=== PATIENT | female | born 1990 | race Caucasian/White ===

== ENCOUNTER 2017-01-03 00:59 | Emergency (ER) | payer OTHER | END 2017-01-03 04:41 | disposition home or self-care (01) | LOC: FER 00:59 | DX: L56.8 Other specified acute skin changes due to ultraviolet radiation (principal) | CPT/HCPCS: 99283 ==

== ENCOUNTER 2021-01-13 12:37 | Emergency (ER) | payer OTHER ==
[~2021-01-13 12:37] MED LIST: ACETAMINOPHEN325 MG PO; AUGMENTIN 500-1 EACH PO; BACTRIM DS TAB1 EACH PO; CARVEDILOL6.25 MG PO; DESYREL50 MG PO; FOLIC ACID1 M1 PO; LINZESS72 MCG PO; MACROBID100 MG PO; MULTIVITAMIN PO; NAPROXEN500 MG PO; NORCO 5-325 TA1 EACH PO; PERCOCET 7.5/321 TAB PO; PHENERGAN25 M1 PO; PREDNISONE10 M1 PO; PROSCAR5 MG PO; PROTONIX 40MG T40 MG PO; SODIUM BICARBO650 M1 PO; SYNTHROID125 MCG PO; TAMSULOSIN HCL0.4 MG PO; ZOLOFT100 MG PO; [UNRECOGNIZED DRUG - OTHER] PO
[2021-01-13 13:33] LABS: BASOPHIL 0.5 % (0-2); EOSINOPHIL 0 % (0-5); HCT 33.7 % (37.0-47.0); HGB 10.9 g/dl (12.5-16.0); LYMPHOCYTE 28.2 % (15-48); MCH 27.6 pg (25.0-31.0); MCHC 32.3 g/dL (32.0-36.0); MCV 85.3 fL (78.0-100.0); MPV 9.5 fL (6.0-9.5); NRBC 0; PLT 271 K/uL (150-400); RBC 3.95 M/uL (4.20-5.40); RDW 13.9 % (11.5-14.0); WBC 7.8 K/uL (4.0-10.5)
[2021-01-13 13:33] LABS: BILIRUBIN NEGATIVE (NEGATIVE); BLOOD NEGATIVE Ery/uL (NEGATIVE); CLARITY CLEAR (CLEAR); COLOR YELLOW (YELLOW); GLUCOSE (U) NORMAL (NORMAL); LEUKOCYTES NEGATIVE Leu/uL (NEGATIVE); NITRITE NEGATIVE (NEGATIVE); PROTEIN TRACE (LOW) mg/dL (NEGATIVE); SPECIFIC GRAVITY >=1.030 (1.001-1.030); UROBILINOGEN 0.2 mg/dL (0.2-1.0); pH 5.5 (5.0-9.0)
[2021-01-13 13:37] LABS: BACTERIA TRACE; URINARY RBC RARE
[2021-01-13 13:50] LABS: ALBUMIN 3.4 g/dL (3.4-5.0); BILIRUBIN - TOTAL 0.2 mg/dL (0.2-1.0); BUN/CREAT RATIO (CALC) 9.1 RATIO; CREATININE 0.99 mg/dL (0.51-0.95); GLOBULIN (CALCULATION) 3.4 g/dL; POTASSIUM 3.6 mmol/L (3.5-5.1); TOTAL PROTEIN 6.8 g/dL (6.4-8.2)
== END 2021-01-13 16:18 | disposition home or self-care (01) ==
LOC: FER 12:37
PROVIDERS: Nurse Practitioner Family
DX: O26.891 Other specified pregnancy related conditions, first trimester (principal); R10.84 Generalized abdominal pain; Z3A.00 Weeks of gestation of pregnancy not specified
CPT/HCPCS: 36415; 80053; 81001; 84702; 85025; 99284

== ENCOUNTER 2021-03-05 10:06 | Emergency (ER) | payer OTHER ==
[2021-03-05 10:53] LABS: BASOPHIL 0.4 % (0-2); EOSINOPHIL 0 % (0-5); HCT 33.9 % (37.0-47.0); HGB 11.3 g/dl (12.5-16.0); LYMPHOCYTE 20.7 % (15-48); MCH 27.8 pg (25.0-31.0); MCHC 33.3 g/dL (32.0-36.0); MCV 83.5 fL (78.0-100.0); MONOCYTE 4.2 % (0-12); MPV 10.3 fL (6.0-9.5); NEUTROPHIL 74.4 % (41-80); NRBC 0; PLT 253 K/uL (150-400); RBC 4.06 M/uL (4.20-5.40); RDW 14.5 % (11.5-14.0); WBC 7.6 K/uL (4.0-10.5)
[2021-03-05 10:58] LABS: BILIRUBIN 2+ mg/dL (NEGATIVE); BLOOD 3+ Ery/uL (NEGATIVE); GLUCOSE (U) NORMAL (NORMAL); LEUKOCYTES NEGATIVE Leu/uL (NEGATIVE); NITRITE POSITIVE (NEGATIVE); PROTEIN 3+ mg/dL (NEGATIVE); SPECIFIC GRAVITY >=1.030 (1.001-1.030)
[2021-03-05 11:10] LABS: ALBUMIN 3.3 g/dL (3.4-5.0); BILIRUBIN - TOTAL 0.2 mg/dL (0.2-1.0); BUN/CREAT RATIO (CALC) 6.5 RATIO; CREATININE 0.93 mg/dL (0.51-0.95); GLOBULIN (CALCULATION) 4.1 g/dL; TOTAL PROTEIN 7.4 g/dL (6.4-8.2)
[2021-03-05 11:17] LABS: CLARITY CLOUDY (CLEAR); COLOR RED (YELLOW)
[2021-03-05 11:18] LABS: URINARY RBC TNTC
[2021-03-05 11:20] LABS: BACTERIA 1+; URINARY WBC 20-50
[2021-03-05] MEDS ORDERED: KEFLEX250 MG PO (13:28)
== END 2021-03-05 13:35 | disposition home or self-care (01) ==
LOC: FER 10:06
PROVIDERS: Emergency Medicine
DX: O23.41 Unspecified infection of urinary tract in pregnancy, first trimester (principal); O20.9 Hemorrhage in early pregnancy, unspecified; Z3A.12 12 weeks gestation of pregnancy
CPT/HCPCS: 36415; 76815; 80053; 81001; 84702; 85025; 86850; 86900; 86901; 87088

== ENCOUNTER 2021-09-15 15:21 | Emergency (ER) | payer OTHER ==
[~2021-09-15 15:21] MED LIST changes: +KEFLEX250 MG PO
[2021-09-15 20:01] LABS: BASOPHIL 0.5 % (0-2); EOSINOPHIL 3.3 % (0-5); HCT 34.6 % (37.0-47.0); HGB 10.7 g/dl (12.5-16.0); LYMPHOCYTE 35.2 % (15-48); MCH 24.9 pg (25.0-31.0); MCHC 30.9 g/dL (32.0-36.0); MCV 80.5 fL (78.0-100.0); MPV 10.8 fL (6.0-9.5); NEUTROPHIL 55.7 % (41-80); NRBC 0; PLT 165 K/uL (150-400); RDW 14.9 % (11.5-14.0)
[2021-09-15 20:19] LABS: ALBUMIN 3.2 g/dL (3.4-5.0); BILIRUBIN - TOTAL 0.2 mg/dL (0.2-1.0); BUN/CREAT RATIO (CALC) 9.5 RATIO; CREATININE 1.05 mg/dL (0.51-0.95); GLOBULIN (CALCULATION) 3.4 g/dL; POTASSIUM 3.9 mmol/L (3.5-5.1); TOTAL PROTEIN 6.6 g/dL (6.4-8.2)
[2021-09-15] MEDS ORDERED: OXY-IR 5MG5 MG PO (21:08)
[2021-09-15] MEDS ORDERED: MIRALAX17 GM PO (21:08)
== END 2021-09-15 22:30 | disposition home or self-care (01) ==
LOC: FER 15:21
PROVIDERS: Emergency Medicine
DX: O99.355 Diseases of the nervous system complicating the puerperium (principal); G89.18 Other acute postprocedural pain; R10.30 Lower abdominal pain, unspecified; K59.00 Constipation, unspecified
CPT/HCPCS: 36415; 80053; 85025; J1170; J7030; Q9967